=== PATIENT | male | born 1985 | race Two or more races ===

== ENCOUNTER 2021-12-14 01:57 | Emergency (ER) | payer MEDICARE, SELFPAY ==
[2021-12-14 02:01] VITALS: BP 115/54; PULSE 64; RESP 18; TEMP 36.9; O2SAT 100
--- NOTE | 2021-12-14 02:24 | ED.GENADULT ---
HPI - General Adult General Chief complaint: Unspecified Stated complaint: Thoat Pain Time Seen by Provider: 12/14/21 02:16 History of Present Illness HPI narrative: Patient is a 36-year-old gentleman who presents the emergency department with chief complaint of sore throat. The patient reports that for the last couple years he has been having intermittent episodes of pain whenever he swallows reports that he feels as though his tonsils are enlarged and reports that he occasionally has some blood in his mouth. The patient states that over the last several days he has had pain with swallowing reports that he feels as though it is hard to talk patient reports he was exposed to influenza by his daughter. Patient reports his or not improved by anything or they worsened by anything. Related Data Allergies Allergy/AdvReac Type Severity Reaction Status Date / Time No Known Allergies Allergy Verified 12/14/21 02:10 Review of Systems Review of Systems: A 10 system review of systems was completed on the patient and is negative except for what is stated in the HPI. Nursing and ancillary documentation was reviewed. PMFSH Comments Patient denies significant past medical history Patient reports a family history significant for cancers at young age Social history the patient denies illicit drug use Exam Narrative: GENERAL: Well-appearing, well-nourished, and in no acute distress. HEAD: Normocephalic, atraumatic. EYES: PERRLA and EOMI. ENT: Nares clear, no rhinorrhea or epistaxis. Mucous membranes moist. Tonsils are slightly minimal erythema no exudate present. No asymmetry noted NECK: Supple. No anterior or posterior cervical lymphadenopathy CHEST: Clear to auscultation. No respiratory distress. HEART: Regular rate and rhythm. No murmur heard. Normal peripheral pulses. ABDOMEN: Soft, nontender, nondistended, normal active bowel sounds. EXTREMITIES: Normal range of motion. No edema. SKIN: Warm, dry, no rash. NEURO: No focal deficits. Alert and oriented x3. PSYCH: Normal mood and affect. Course Course Emergency Course: Rapid strep and rapid flu were negative Vital Signs Vital signs: Vital Signs Temperature 36.9 C 12/14/21 02:01 Pulse Rate 64 12/14/21 02:01 Respiratory Rate 18 12/14/21 02:01 Blood Pressure 115/54 L 12/14/21 02:01 Pulse Oximetry 100 12/14/21 02:01 Temperature 36.9 C 12/14/21 02:01 Pulse Rate 67 12/14/21 03:12 Respiratory Rate 16 12/14/21 03:12 Blood Pressure 110/64 12/14/21 03:12 Pulse Oximetry 99 12/14/21 03:12 Medical Decision Making Vital Signs Vital Signs: Vital Signs Temperature 36.9 C 12/14/21 02:01 Pulse Rate 64 12/14/21 02:01 Respiratory Rate 18 12/14/21 02:01 Blood Pressure 115/54 L 12/14/21 02:01 Pulse Oximetry 100 12/14/21 02:01 Temperature 36.9 C 12/14/21 02:01 Pulse Rate 67 12/14/21 03:12 Respiratory Rate 16 12/14/21 03:12 Blood Pressure 110/64 12/14/21 03:12 Pulse Oximetry 99 12/14/21 03:12 Discharge Plan Discharge Clinical Impression: Pharyngitis Patient Disposition: Home, Self-Care Condition: Stable Instructions: Antibiotic Form, Pharyngitis (ED) Prescriptions: New prednisone 20 mg tablet 40 mg PO DAILY 5 Days Qty: 10 RF: 0 Follow-up/Referrals: PHYSICIAN,HOUSE SERVANT [Primary Care Provider] - Kassandra Claros DO [Physician] - Time of Disposition: 03:46
[2021-12-14 03:12] VITALS: BP 110/64; PULSE 67; RESP 16; O2SAT 99
[2021-12-14] MEDS: predniSONE 20 MG TABLET 60 MG PO (04:04)
[2021-12-14 05:02] VITALS: BP 111/57; PULSE 67; RESP 16; O2SAT 100
== END 2021-12-14 05:04 | disposition home or self-care (01) ==
PROVIDERS: Emergency Provider Emergency Medicine
DX: J02.9 Acute pharyngitis, unspecified (principal)
CPT/HCPCS: 87081; 87804; 87880; 99283; J7512

== ENCOUNTER 2022-03-03 00:31 | Day surgery (SDC) | payer MEDICARE, SELFPAY ==
[2022-02-17 13:16] VITALS: BMI 27.1
--- NOTE | 2022-03-03 12:04 | WPDANESEPPF ---
Anes - Initial Pre Proc Eval Procedure: Operation Date: 03/03/22 13:45 Proposed Procedures p Esophagogastroduodenoscopy & Colonoscopy - Jasen Nye MD Date/Time: 03/03/22 12:04 Surgeon: Jasen Nye MD Pre Op Diagnosis: dysphagia, melena Patient Data Age: 37 Gender: M Height: 1.83 m Weight: 91 kg Allergies Allergy/AdvReac Type Severity Reaction Status Date / Time No Known Allergies Allergy Verified 03/03/22 12:37 Home Medications Medication Instructions Recorded Confirmed Type albuterol sulfate 90 mcg/actuation 1 inh inhalation Q4-6H PRN 01/01/22 03/03/22 History breath activated powder inhaler Shortness Of Breath calcium 500 mg tablet 500 mg PO DAILY 02/17/22 03/03/22 History idsmgxcy-vksbblwt-qoynb acid 400 1 tablet PO DAILY 02/17/22 03/03/22 History mcg-vit K 20 mcg-lycop 300 mcg tablet (One-A-Day Men's Multivitamin) Patient hx anesthesia problems: none Family hx anesthesia problems: none Results Review: All pre-operative results and documents have been reviewed as part of the pre-operative evaluation. [facility] Past Medical History Medical History (Updated 03/03/22 @ 12:05 by Enzo Campoverde MD) Anxiety Asthma Depression Overweight PTSD (post-traumatic stress disorder) Stomach ulcer Family History Family History Mother Cancer Father Heart disease Hypertension Thyroid disorder Grandparent Cancer Grandparent Diabetes mellitus Colon cancer Grandparent Throat cancer Social History Social History Smoking status: Former smoker Tobacco type: cigarettes Alcohol intake: current Alcohol use details: 3x yearly Substance use: current Substance use type: marijuana Last use: 3x weekly Spiritual care concerns: No Anes - Eval Final PreProcedure Day of Procedure 03/03/22 12:04 Patient weight: overweight Heart: regular rate and rhythm Lungs: clear to auscultation and normal air movement Airway: Mallampati scale class II Neurological: alert and oriented Last oral intake: >/= 8 hours ASA classification: II Emergent: no Anesthetic plan: proceed Anesthesia type and monitoring: general GIVS Results Review: All pre-operative results and documents have been reviewed as part of the pre-operative evaluation. Informed Consent: The patient's anesthetic plan and its attendant risks and benefits were discussed with the patient/family/POA. Questions were solicited and answers provided to the satisfaction of the patient/family/POA.
[2022-03-03 12:38] VITALS: BP 107/59; PULSE 58; RESP 16; TEMP 36.4; O2SAT 99; BMI 27.1
[2022-03-03] MEDS: LACTATED RINGERS 1,000 ML 150 ML IV CONT (12:50)
--- NOTE | 2022-03-03 13:39 | PM.HPGS ---
History of Present Illness History of Present Illness Consent: Risks, benefits, and alternatives have been discussed and questions answered. Patient agrees to proceed with procedure. Chief complaint: dysphagia, melena Narrative: Flynn Borden is a 37 year old male with globus sensation, also intermittent rectal bleeding Review of Systems Constitutional: Constitutional: Denies headache(s) and Denies weakness Eyes: Eyes: Denies blurry vision ENT: Reports Normal hearing present, Denies headache(s) and Denies neck pain Cardiovascular: Cardiovascular: Denies chest pain and Denies dyspnea Respiratory: Respiratory: Denies dyspnea Gastrointestinal: Gastrointestinal: Reports no additional gastrointestinal complaints Genitourinary: Genitourinary: Denies dysuria Musculoskeletal: Musculoskeletal: Denies neck pain Integumentary/Breasts: Skin/Breast: Denies dry skin Neurologic: Reports Normal hearing present, Denies headache(s) and Denies weakness Psychiatric: Psychiatric: Denies anxiety Endocrine: Endocrine: Denies change in body appearance Hematologic/Lymphatic: Hematologic/Lymphatic: Denies easy bleeding Allergic/Immunologic: Allergic/Immunologic: Denies urticaria PMFSH Past Medical History Medical History (Updated 03/03/22 @ 13:41 by Jasen Nye MD) Anxiety Asthma Depression Globus sensation Overweight PTSD (post-traumatic stress disorder) Stomach ulcer Family History Family History Mother Cancer Father Heart disease Hypertension Thyroid disorder Grandparent Cancer Grandparent Diabetes mellitus Colon cancer Grandparent Throat cancer Social History Social History Smoking status: Former smoker Tobacco type: cigarettes Alcohol intake: current Alcohol use details: 3x yearly Substance use: current Substance use type: marijuana Last use: 3x weekly Spiritual care concerns: No Meds Home Medications and Allergies Home Medications Medication Instructions Recorded Confirmed Type albuterol sulfate 90 mcg/actuation 1 inh inhalation Q4-6H PRN 01/01/22 03/03/22 History breath activated powder inhaler Shortness Of Breath calcium 500 mg tablet 500 mg PO DAILY 02/17/22 03/03/22 History ggghtuyx-tfhbfiyd-dkglg acid 400 1 tablet PO DAILY 02/17/22 03/03/22 History mcg-vit K 20 mcg-lycop 300 mcg tablet (One-A-Day Men's Multivitamin) Allergies Allergy/AdvReac Type Severity Reaction Status Date / Time No Known Allergies Allergy Verified 03/03/22 12:37 Vital Signs Vital Signs - 24 hr 03/03/22 12:38 Temperature 97.6 F Pulse Rate 58 L Respiratory Rate 16 Blood Pressure 107/59 L Pulse Oximetry 99 Oxygen Delivery Room Air Exam Const: General: comfortable and no acute distress HENMT: General nose exam: Normal nares present Eyes: General: appearance normal, both eyes and all related structures Neck: Neck: no JVD Resp: Auscultation: clear to auscultation bilaterally Cardio: Rate: regular rate Rhythm: regular rhythm GI: Inspection: non-distended GI Palp: Yes Soft to palpation Skin: General skin exam: normal color Neuro: General: gait normal Speech: normal speech Extrem: General: normal to inspection Psych: Mental Status: mental status grossly normal Assessment and Plan Assessment and plan (1) Blood in stool: Code(s): K92.1 - Melena Status: Acute Assessment and Plan: will proceed with colonoscopy (2) Globus sensation: Code(s): R09.89 - Other specified symptoms and signs involving the circulatory and respiratory systems Status: Acute Assessment and Plan: ppi did not help will assess with egd
--- NOTE | 2022-03-03 14:10 | SUR.OPER ---
EGD START 1347, END 1351. COLONOSCOPY START 1357, END 1407.
[2022-03-03 14:13] VITALS: BP 98/59; PULSE 61; RESP 16; O2SAT 100
[2022-03-03 14:23] VITALS: BP 120/100; PULSE 62; RESP 20; O2SAT 100
[2022-03-03 14:33] VITALS: BP 115/71; PULSE 62; RESP 20; O2SAT 100
== END 2022-03-03 14:46 | disposition home or self-care (01) ==
PROVIDERS: PCP Family Medicine; Visit Provider Internal Medicine Gastroenterology
PROC: 0DJ08ZZ Inspection of Upper Intestinal Tract, Via Natural or Artificial Opening Endoscopic (ICD-10-PCS; CPT 43235; principal; 2022-03-03 13:45)
DX: K92.1 Melena (principal); K64.8 Other hemorrhoids; K63.5 Polyp of colon; D12.3 Benign neoplasm of transverse colon; F45.8 Other somatoform disorders; F41.9 Anxiety disorder, unspecified; F32.A Depression, unspecified; J45.909 Unspecified asthma, uncomplicated; F43.10 Post-traumatic stress disorder, unspecified; Z87.891 Personal history of nicotine dependence; F12.90 Cannabis use, unspecified, uncomplicated; Z79.51 Long term (current) use of inhaled steroids
CPT/HCPCS: 45380; 45385; 43239; 88305; 88342; J2704; J7120

== ENCOUNTER 2022-03-12 10:15 | Outpatient (CLI) | payer MEDICARE, MEDICAID, SELFPAY ==
--- NOTE | ~2022-03-12 | US_ITS ---
EXAMINATION: US scrotum doppler DATE: 03/12/2022 11:22 INDICATION: Left testicular pain TECHNIQUE: Testicular sonogram utilizing grayscale and Doppler COMPARISON: None. FINDINGS: The right testis measures 4.9 x 3.0 x 2.3 cm. The left testis measures 4.8 x 3.1 x 2.3 cm. Symmetric normal grayscale appearance to both testes. 4 mm simple appearing anechoic left testicular cyst. Ther e is normal vascular flow to both testes. Bilateral epididymal cysts measuring 10 mm on the right and 2.5 cm on the left. Bilateral epididymides are otherwise normal with normal vascular flow. There is no varicocele or hydrocele. IMPRESSION: 1. Bilateral epididymal cysts and 5 mm left testicular cyst. Otherwise unremarkable scrotal ultrasou nd Reviewed, dictated and finalized at location A. IMPRESSION: 1. Bilateral epididymal cysts and 5 mm left testicular cyst. Otherwise unremar kable scrotal ultrasound
== END 2022-03-12 10:16 | disposition home or self-care (01) ==
PROVIDERS: PCP Family Medicine; Visit Provider Family Medicine
DX: N50.812 Left testicular pain (principal); N50.3 Cyst of epididymis
CPT/HCPCS: 76870; 93976

== ENCOUNTER 2022-03-21 00:36 | Day surgery (SDC) | payer MEDICARE, MEDICAID, SELFPAY ==
[2022-03-18 13:14] VITALS: BMI 27.8
--- NOTE | 2022-03-18 13:24 | SUR.PREOP ---
Report to the Outpatient Waiting Room, entrance under the green pavilion located off [facility], at time 0730 on date 03/21/22. OR Time: 0930. - You and your visitor will be asked a series of questions to screen for COVID 19 for your protection. - Only one visitor is allowed at this time. - The patient visitor is requested to leave or wait in car when not with patient. - A mask is required within the hospital. Patients may have clear liquids (water, carbonated beverages, clear teas, apple juice) until 3 hours prior to surgery with a maximum of 20 ounces. - No food from midnight until time of surgery NOTHING TO DRINK AFTER 0630AM - Infants may have breast milk until 4 hours before surgery, formula 6 hours prior to surgery. - Children will be allowed to drink immediately following surgery. If applicable, please bring a bottle or sippy cup to assist with drinking. Juice, water, soda, and popsicles are readily available. For infants on formula, please bring formula the day of surgery. Pacifiers are allowed. Take the following medications with a SIP of water the morning of surgery: _N/A Medications to discontinue per physician N/A Date to take last dose Please no make-up, nail japanese, hairspray, perfume, deodorant, or body powder the day of surgery. No jewelry (including any body piercings) or valuables the day of surgery, leave them at home. Please take a shower or bath the night before, or the morning of, surgery with an antibacterial soap. Wear comfortable, loose fitting clothing. Children are encouraged to wear pajamas. - Jewelry must be removed prior to entering the operating room. Rings and piercings that are not removed may be cut off. - The hospital will not accept responsibility for valuables. - Please leave all valuables, including medications, at home the day of surgery. If you are going home after surgery, a licensed bus van driver must drive you home. - NO public transportation without another adult. - We recommend that an adult stay with you for 24 hours following discharge. - We also recommend that you do not drive, make important decision, drink alcoholic beverages, or take any drugs that were not prescribed by your health care provider for at least 24 hours after your discharge time. For Pediatric surgeries, we recommend two adults accompany the child home (only one inside the building at this time). Follow any additional instructions given to you from your surgeon. If you or anyone in your household have experienced Covid symptoms in the past week, please notify your surgeon or the nurse liaison at the phone number below for possible testing. Telephone instructions given to _PATIENT_and asked if any additional questions and then verbalized understanding. Patient advised to call surgeon office or pre surgery nurse liaison [phone] if any additional questions.
--- NOTE | 2022-03-20 16:17 | P.HP_ITS ---
H&P: HPI History of Present Illness Date/Time: 03/20/22 16:17 Chief Complaint: nasal congestion nasal obstruction septal deviation turbinate hypertrophy Review of Systems Review of Systems: All systems reviewed & are unremarkable except as noted in HPI and below [facility] Past Medical History Medical History (Updated 03/13/22 @ 11:34 by Kassandra Claros DO) Anxiety Asthma Depression Globus sensation Overweight PTSD (post-traumatic stress disorder) Stomach ulcer Family History Family History Mother Cancer Father Heart disease Hypertension Thyroid disorder Grandparent Cancer Grandparent Diabetes mellitus Colon cancer Grandparent Throat cancer Social History Social History Smoking status: Former smoker Tobacco type: cigarettes Alcohol intake: current Alcohol use details: 3x yearly Substance use: current Substance use type: marijuana Other substance usage details: daily Last use: 3x weekly Spiritual care concerns: No Meds Home Medications and Allergies Home Medications Medication Instructions Recorded Confirmed Type albuterol sulfate 90 mcg/actuation 1 inh inhalation Q4-6H PRN 01/01/22 03/18/22 History breath activated powder inhaler Shortness Of Breath Allergies Allergy/AdvReac Type Severity Reaction Status Date / Time No Known Allergies Allergy Verified 03/03/22 12:37 Exam Narrative: septal deviation turbinate hypertrophy Assessment and Plan Assessment and plan (1) Deviated nasal septum: Code(s): J34.2 - Deviated nasal septum Status: Acute Assessment and Plan: ?Plan operating room endoscopic assisted septoplasty inferior turbinate re duction with outfracture.? Risks discussed including bleeding infection blindness CSF leak brain damage change in vision septal perforation need for further procedures.? Patient voiced understanding and agreed. (2) Nasal obstruction: Code(s): J34.89 - Other specified disorders of nose and nasal sinuses Status: Acute (3) Nasal congestion: Code(s): R09.81 - Nasal congestion Status: Acute (4) Hypertrophy of both inferior nasal turbinates: Code(s): J34.3 - Hypertrophy of nasal turbinates Status: Acute Plan ?Plan operating room endoscopic assisted septoplasty inferior turbinate reduction with outfracture.? Risks discussed including bleeding infection blindness CSF leak brain damage change in vision septal perforation need for further procedures.? Patient voiced understanding and agreed.
[2022-03-21] VITALS (9 sets, daily range): BP systolic 111–126; BP diastolic 49–78; PULSE 61–77; RESP 11–18; TEMP 36–36.5; O2SAT 100
--- NOTE | 2022-03-21 07:11 | WPDHPUPDATE1 ---
History and Physical Update Update Date/Time: 03/21/22 07:11 History and Physical has been reviewed, including an updated exam of the patient. There are NO changes in the patient's condition. Risks, benefits, and alternatives have been discussed and questions answered. Patient agrees to proceed with procedure.
[2022-03-21] MEDS: ACETAMINOPHEN 500 MG TABLET 1000 MG PO (08:46)
[2022-03-21] MEDS: LACTATED RINGERS 1,000 ML 30 ML IV CONT ×2 (08:53→11:10)
--- NOTE | 2022-03-21 08:57 | WPDANESEPPF ---
Anes - Initial Pre Proc Eval Procedure: Operation Date: 03/21/22 09:30 Proposed Procedures p Endoscopic Septoplasty - Alexander Celestin MD s Bilateral Inferior Turbinectomy with Outfracture - Alexander Celestin MD Date/Time: 03/21/22 08:57 Surgeon: Alexander Celestin MD Pre Op Diagnosis: Nasal Septal Deviation, Turbinate Hypertrophy Patient Data Age: 37 Gender: M Height: 1.83 m Weight: 93.2 kg Last Vital Signs Temp 36.0 C L 03/21/22 08:33 Pulse 71 03/21/22 08:33 Resp 16 03/21/22 08:33 BP 123/49 L 03/21/22 08:33 Pulse Ox 100 03/21/22 08:33 O2 Del Method Room Air 03/21/22 08:33 Allergies Allergy/AdvReac Type Severity Reaction Status Date / Time No Known Allergies Allergy Verified 03/21/22 08:40 Home Medications Medication Instructions Recorded Confirmed Type albuterol sulfate 90 mcg/actuation 1 inh inhalation Q4-6H PRN 01/01/22 03/21/22 History breath activated powder inhaler Shortness Of Breath Patient hx anesthesia problems: none Family hx anesthesia problems: none Results Review: All pre-operative results and documents have been reviewed as part of the pre-operative evaluation. REPLACED BY [facility] Past Medical History Medical History Anxiety Asthma Depression Globus sensation Overweight PTSD (post-traumatic stress disorder) Stomach ulcer Family History Family History Mother Cancer Father Heart disease Hypertension Thyroid disorder Grandparent Cancer Grandparent Diabetes mellitus Colon cancer Grandparent Throat cancer Social History Social History Smoking status: Former smoker Tobacco type: cigarettes Alcohol intake: current Alcohol use details: 3x yearly Substance use: current Substance use type: marijuana Other substance usage details: daily Last use: 3x weekly Living arrangements: with family Spiritual care concerns: No Anes - Eval Final PreProcedure Day of Procedure 03/21/22 08:57 Patient weight: overweight Heart: regular rate and rhythm Lungs: clear to auscultation Airway: Mallampati scale class II Neurological: alert and oriented Last oral intake: >/= 8 hours ASA classification: II Emergent: no Anesthetic plan: proceed Anesthesia type and monitoring: general ETT and standard monitoring Results Review: All pre-operative results and documents have been reviewed as part of the pre-operative evaluation. Informed Consent: The patient's anesthetic plan and its attendant risks and benefits were discussed with the patient/family/POA. Questions were solicited and answers provided to the satisfaction of the patient/family/POA.
[2022-03-21] MEDS: SCOPOLAMINE 1.5 MG PATCH TRANSDERM (09:09)
[2022-03-21] MEDS: ceFAZolin 2 GM/D5W 50 ML 2 GM/50 ML BAG IVPB (09:19)
[2022-03-21] MEDS: OXYMETAZOLINE HCL 0.05% NAS 15 ML BTL (*BKC) 1 SPRAY NASAL (09:25)
[2022-03-21] MEDS: MUPIROCIN 2% OINT 22 GM TUBE 1 APPLIC EACH NARE (10:32)
[2022-03-21] MEDS: LIDO 1%/EPINEPHRINE 1:100,000 10 ML VIAL INFILTRATE (10:36)
[2022-03-21] MEDS: fentaNYL CITRATE INJ (*CRX) 100 MCG/2 ML VIAL 25 MCG IV PUSH ×4 (10:53→11:35)
--- NOTE | 2022-03-21 11:14 | P.OP_ITS ---
Procedure Note - Detailed Date of Procedure 03/21/22 Pre-op Diagnosis Nasal Septal Deviation, Turbinate Hypertrophy, nasal obstruction, nasal congestion Post-op Diagnosis Same Procedure Performed Endoscopic assisted septoplasty, bilateral inferior turbinate submucosal resection with outfracture submucosal reduction with outfracture Surgeon Alexander Celestin MD Anesthesia General Indications See above Findings Turbinates hypertrophied reduced well accidental Monica left turbinate this will heal just fine septum deviated caudally was quite challenging left adequate strut good straightening much more patent airway. Description of Procedure Patient identified consent verified. Patient brought operating. Time-out performed. General anesthesia induced. Endotracheal tube secured taste taped to left lower lip. Patient prepped and draped bed manipulated 2nd time-out performed. Afrin-soaked pledgets placed bilaterally allowed to sit for 5 minutes then removed. 0 degree endoscope utilized to 10 cc total 1 in each inferior turbinate 8 in the submucoperichondrial plane of the septum injected with 1 100,000 parts epinephrine with 1% lidocaine. Snyder incision made left- sided arielle transection incision by as technically Adrian left nasal septal flap elevated with 7 [place] suction no tear osteotome utilized to outline a crossover right nasal septal flap elevated no tear. Deviated septum removed scissors Silvino Gloriaton forceps Karrie forceps and osteotome. Much more pain airway incision closed 4 interrupted 5 0 fast gut sutures. Inferior turbinates reduced with microdebrider with turbinate blade then outfractured with [place] good reduction again accidental tear on the left side. Total blood loss about 10 cc. Pickard splints placed covered in mupirocin sutured anteriorly using a mattress 3-0 interrupted well mattress 3-0 nylon suture. Hemostasis was excellent I performed all dictated portions care the patient given Anesthesiology no complications patient taken to PACU. Estimated Blood Loss -10.0 Drains No Packing No Pathology None sent Complications No immediate complications Condition Stable Disposition PACU
[2022-03-21] MEDS: oxyCODONE HCL (*CRX) 5 MG TAB IR PO (12:15)
== END 2022-03-21 13:05 | disposition home or self-care (01) ==
PROVIDERS: PCP Family Medicine; Visit Provider Otolaryngology
PROC: (CPT 30520; principal; 2022-03-21 09:30)
PROC: (CPT 30520; 2022-03-21 09:30)
DX: J34.2 Deviated nasal septum (principal); J34.89 Other specified disorders of nose and nasal sinuses; R09.81 Nasal congestion; J34.3 Hypertrophy of nasal turbinates; Z79.51 Long term (current) use of inhaled steroids; F12.90 Cannabis use, unspecified, uncomplicated; Z87.891 Personal history of nicotine dependence; F41.9 Anxiety disorder, unspecified; F32.A Depression, unspecified; F43.10 Post-traumatic stress disorder, unspecified; J45.909 Unspecified asthma, uncomplicated; K25.9 Gastric ulcer, unspecified as acute or chronic, without hemorrhage or perforation
CPT/HCPCS: 30520; 30140; A9270; J0690; J1100; J2250; J2405; J2704; J3010; J7120